=== PATIENT | female | born 1980 | race American Indian/Alaskan Native ===

== ENCOUNTER 2018-01-24 00:13 | Emergency (ER) | payer SELFPAY ==
[2018-01-24 00:48] VITALS: BP 113/58
== END 2018-01-24 02:35 | disposition left against medical advice (07) ==
LOC: ED 00:13
DX: R10.30 Lower abdominal pain, unspecified (principal); Z53.21 Procedure and treatment not carried out due to patient leaving prior to being seen by health care provider
CPT/HCPCS: 36415; 84702